=== PATIENT | male | born 1960 | race Caucasian/White ===

== ENCOUNTER 2016-09-25 01:29 | Emergency (ER) | payer OTHER ==
[~2016-09-25] VITALS: Ht 167.6 cm; Wt 71.5 kg
[~2016-09-25 01:29] MED LIST: ACET325T33 PO; ASCO500C7 PO; COLC0.6T6 PO; CRAN425C PO; DOCU-144 PO; DOXA1TAB PO; DULR PR; HEP5KI SC; HYDR-902 PO; LANT3I SC; LISI10TA2 PO; METO-429 PO; MULT-105 PO; NEPH PO; NOVO3I SC; OMEP40CA3 PO; ONDA4TAB8 PO; PERCOCET PO; SEVE800T10 PO; TENO300T2 PO; ZINC220C5 PO
[2016-09-25 01:46] VITALS: Ht 167.6 cm; Wt 71.5 kg
[2016-09-25] MEDS ORDERED: morphine 4 MG/ML VIAL IV STA (01:58)
[2016-09-25] MEDS ORDERED: ONDANSETRON 4 MG INJ IV STA (01:58)
--- NOTE | 2016-09-25 02:24 | RADRPT ---
PROCEDURE: Right shoulder. CLINICAL INDICATION: Pain. TECHNIQUE: 2 views of the right shoulder. COMPARISON: None. FINDINGS: There is a fracture of the anatomic neck of the right proximal humerus with moderate varus angulatio n. There is no significant displacement. There is no dislocation. The joint spaces are within nor mal limits. Bone mineralization is within normal limits. There is no radiopaque foreign body or ab normal calcification. IMPRESSION: Right humeral neck fracture. .Juan Carlos Mart MD, Date Time Electronically viewed and signed by .Juan Carlos Mart MD, on 09/25/2016 02:23 .T/
--- NOTE | 2016-09-25 02:53 | ERD ---
ER Documentation Chief Complaint Date/Time DATE: 09/25/16 TIME: 02:52 Chief Complaint Rt shoulder pain r/t slipped & fell,unable to move arm HPI This is a 56-year-old with a right shoulder pain status post slipping and falling. He has pain in his arm and adjustment. No head trauma. No loss of conscious. No other current complaints. ROS All systems reviewed and are negative except as per history of present illness. Medications Home Meds Active Scripts Docusate Sodium* (Colace*) 100 Mg Capsule, 100 MG PO TID, #30 CAP Prov:CHRISTI OSWALD MD 07/11/16 Hydrocodone/Acetaminophen (Tupman 10-325 Tablet) 1 Each Tablet, 1 TAB PO Q6H Y for PAIN, #7 TAB Prov:CHRISTI OSWALD MD 07/11/16 Ondansetron Hcl* (Zofran*) 4 Mg Tablet, 4 MG PO Q6H for NAUSEA AND/OR VOMITING, #10 TAB Prov:ESME TADEO MD 05/28/16 Colchicine* (Colcrys*) 0.6 Mg Tablet, 0.6 MG PO DAILY, #1 TAB Prov:VINICIUS CORONADO MD 03/21/16 Sevelamer Hcl* (Renagel*) 800 Mg Tablet, 800 MG PO WITH MEALS, #1 TAB Prov:VINICIUS CORONADO MD 03/21/16 Oxycodone Hcl/Acetaminophen (Percocet) 1 Tab Tab, 1 TAB PO Q6H Y for PAIN LEVEL 1-3, #1 TAB Prov:VINICIUS CORONADO MD 03/21/16 Insulin Glargine* (Lantus*) 100 Unit/Ml Soln, 12 UNIT SC QAM, #1 Prov:VINICIUS CORONADO MD 03/21/16 Heparin Sodium,Porcine/Pf (Heparin Na 5,000 Units/0.5 Ml) 0.5 Ml Disp.syrin, 5000 UNIT SC Q12, #1 Prov:VINICIUS CORONADO MD 03/21/16 Reported Medications Insulin Aspart* (Novolog Insulin Pen*) 100 Unit/Ml Soln, 0 SC .SLIDING SCALE AC , EA 0-150=0UNITS, 151-200=2UNITS, 201-250=4UNITS, 251-300=6UNITS,301-350=8UNITS,351-400=10UNITS, ABOVE 400=12UNITS 07/11/16 Ascorbic Acid* (Vitamin C*) 500 Mg Capsule.sa, 500 MG PO DAILY, CAP 07/11/16 Cranberry Extract (Cranberry) 425 Mg Capsule, 425 MG PO DAILY, CAP 07/11/16 Acetaminophen* (Tylenol*) 325 Mg Tablet, 650 MG PO Q4H Y for MILD PAIN LEVEL 1-3 , TAB 07/11/16 Zinc Sulfate* (Zinc Sulfate*) 220 Mg Cap, 220 MG PO DAILY, CAP 07/11/16 Multivitamin with Minerals (Multivitamins with Minerals) 1 Each Tablet, 1 EACH PO BID, TAB 07/11/16 Multivit/Ca Carb/B Cmplx/Fa* (Naz-Dyllan*) 1 Tab Tab, 1 TAB PO DAILY, TAB 07/11/16 Doxazosin Mesylate* (Doxazosin Mesylate*) 1 Mg Tablet, 1 MG PO HS, TAB HOLD IF SBP<110 07/11/16 Lisinopril* (Lisinopril*) 10 Mg Tablet, 10 MG PO QHS, #30 TAB HOLD IF SBP<110 07/11/16 Bisacodyl* (Bisacodyl*) 10 Mg Supp, 10 MG [place] Q24H Y for PRN, SUPP 07/11/16 Metoprolol Tartrate* (Lopressor*) 50 Mg Tab, 50 MG PO BID, #60 TAB 03/08/16 Tenofovir Disoproxil Fumarate (Viread) 300 Mg Tablet, 300 MG PO every 7 days, TAB TAKE AFTER HD OR AFTER 12H OF HD 05/09/15 Omeprazole* (Prilosec*) 40 Mg Capsule.dr, 40 MG PO DAILY, CAP 05/09/15 Allergies Allergies: Coded Allergies: No Known Allergy (Unverified , 07/11/16) PMhx/Soc History of Surgery: Yes ( left hip replacement, AV fistula x 2(not working) permacath right groin) Anesthesia Reaction: No Hx Neurological Disorder: No Hx Respiratory Disorders: No Hx Cardiac Disorders: Yes (htn) Hx Psychiatric Problems: No Hx Miscellaneous Medical Probl: Yes (dm, ESRF, dialysis (M/W/F)) Hx Alcohol Use: No Hx Substance Use: No Hx Tobacco Use: No Smoking Status: Never smoker Physical Exam Vitals Vital Signs Date Time Temp Pulse Resp B/P Pulse Ox O2 Delivery O2 Flow Rate FiO2 09/25/16 01:46 97.9 64 18 189/84 98 Physical Exam Const: [] Head: Atraumatic Eyes: Normal Conjunctiva ENT: Normal External Ears, Nose and Mouth. Neck: Full range of motion..~ No meningismus. Resp: Clear to auscultation bilaterally Cardio: Regular rate and rhythm, no murmurs Abd: Soft, non tender, non distended. Normal bowel sounds Skin: No petechiae or rashes Back: No midline or flank tenderness Ext: No cyanosis, or edema Neur: Awake and alert Psych: Normal Mood and Affect Results 24 hrs Current Medications Medications (Trade) Dose Ordered Sig/[place] Route PRN Reason Start Time Stop Time Status Last Admin Dose Admin Morphine Sulfate (morphine) 4 mg ONCE STAT IV 09/25/16 01:58 09/25/16 02:00 DC 09/25/16 02:28 Ondansetron HCl (Zofran Inj) 4 mg ONCE STAT IV 09/25/16 01:58 09/25/16 02:00 DC 09/25/16 02:28 Procedures/MDM X-ray Shoulder 3V Interpreted by me: Bones: Right humeral fracture Joints: No dislocation Foreign body: None Medical decision-making: The patient is only humeral fracture. First a shoulder sling. He is to follow-up with outpatient orthopedics. Patient is neurovascularly intact Departure Diagnosis: Primary Impression: Shoulder pain Laterality: right Chronicity: acute Qualified Code: M25.511 - Acute pain of right shoulder Additional Impressions: Shoulder injury Encounter type: initial encounter Laterality: right Qualified Code: S49.91XA - Shoulder injury, right, initial encounter Humerus fracture Encounter type: initial encounter Humerus Location: proximal Fracture type : closed Fracture morphology: other fracture Fracture alignment: nondisplaced Laterality: right Qualified Code: S42.294A - Other closed nondisplaced fracture of proximal end of right humerus, initial encounter Condition: Stable VINICIUS VARGAS Sep 25, 2016 02:53
[2016-09-25] MEDS ORDERED: HYDR-902 PO (02:57)
[2016-09-25 03:19] VITALS: BP 172/69; PULSE 64; RESP 18
== END 2016-09-25 03:55 | disposition home or self-care (01) ==
LOC: E/R 01:29
DX: S42.294A Other nondisplaced fracture of upper end of right humerus, initial encounter for closed fracture (principal); I12.0 Hypertensive chronic kidney disease with stage 5 chronic kidney disease or end stage renal disease; N18.6 End stage renal disease; E11.9 Type 2 diabetes mellitus without complications; W01.0XXA Fall on same level from slipping, tripping and stumbling without subsequent striking against object, initial encounter; Y92.9 Unspecified place or not applicable; Z99.2 Dependence on renal dialysis; Z79.4 Long term (current) use of insulin; Z79.01 Long term (current) use of anticoagulants; Z96.642 Presence of left artificial hip joint
CPT/HCPCS: 73030; J2270; J2405; Z7610; 96374; 96375

== ENCOUNTER 2018-03-12 11:32 | Day surgery (SDC) | END 2018-03-12 15:33 | disposition home or self-care (01) ==